=== PATIENT | male | born 1990 | race Two or more races ===

== ENCOUNTER 2023-10-24 14:03 | Emergency (ER) | payer SELFPAY ==
[2023-10-24 14:58] LABS: SARS-CoV-2 NAA Rapid Test Not Detected (NotDetected)
== END 2023-10-24 15:08 | disposition home or self-care (01) ==
LOC: BURERS 14:03
DX: A08.4 Viral intestinal infection, unspecified (principal); R19.7 Diarrhea, unspecified
CPT/HCPCS: 0241U; 99284